=== PATIENT | female | born 1965 | race Caucasian/White ===

== ENCOUNTER → 2020-03-19 | Outpatient (CLI) | payer MEDICARE, MEDICAID ==
[~2020-03-19] MED LIST: ASPI325T8 PO; CRESTOR40 MG PO; DICL100G54 TP; DULO60CA6 PO; IBUP-1007 PO; LEVO112T2 PO; LOSA100T14 PO; LOSA100T2 PO; LURA40TA PO; METO-239 PO; MULT-245 PO; ONDA-84 PO; ONDA4TAB7 PO; OXYC1TAB15 PO; PROM25TA10 PO; ROPI0.25 PO; TIZA4TAB2 PO; TRAZ-123 PO
--- NOTE | 2020-03-19 15:06 | KCIC ---
MRI BRAIN WO Date: 03/19/2020 2:10 PM Indication: Reason: HEADACHES / Spl. Instructions: Pt states the head pain shoots from the back of h er head to her eyes. / History: Deep head pain and pressure since an injury in 2003. Comparison: None. Technique: Multiplanar multisequence MRI of the brain was performed without intravenous contrast usin g the standard protocol. Findings: No acute infarct. No acute or chronic hemorrhage. The ventricles are normal in size and configuration without hydrocephalus. Mild scattered FLAIR hyperintensities in the subcortical and periventricular deep white matter. The scalp and calvarium are normal. The pituitary and sella are normal. No Chiari malformation. The v isualized upper cervical spine is normal. The visualized orbits and globes are normal. The visualized paranasal sinuses are clear. The mastoid air cells are clear. Normal flow voids within the vertebral, basilar, and internal carotid arteries indicating patency. IMPRESSION: 1. No acute infarct, hemorrhage, mass, or hydrocephalus. 2. Mild scattered FLAIR hyperintensities in the subcortical and periventricular deep white matter, a nonspecific finding which can be seen with chronic small vessel ischemic disease, sequela of chronic migraines, demyelinating disease, drug toxicity, prior infection (Lyme disease), prior injury, or vas culitis. Electronically signed by: Armin Perez MD (03/19/2020 3:04 PM) [id number]
== END ==
LOC: KCIC MRI 13:55
PROVIDERS: ATTEND Physician Assistant Medical
DX: R51.9 Headache, unspecified (principal)
CPT/HCPCS: 70551

== ENCOUNTER → 2020-05-14 | Outpatient (CLI) | payer OTHER, MEDICAID ==
--- NOTE | 2020-05-14 17:05 | KCIC ---
EXAMINATION: MRI LEFT LOWER EXTREMITY JOINT WITHOUT INDICATIONS: Left knee pain. Chronic radiating medial knee pain for years. TECHNIQUE: Multiplanar multisequence MRI of the left knee was obtained without contrast. COMPARISON: Bilateral knee radiograph 05/09/2020 FINDINGS: MENISCI: There is a radial tear of the posterior horn-root junction medial meniscus. There is 3 mm e xtrusion of the meniscal body. There is blunting of the interbody of the lateral meniscus. Lateral me niscus is otherwise intact. LIGAMENTS: The anterior and posterior cruciate ligaments are intact. The medial collateral ligament and lateral collateral ligament complex are intact. EXTENSOR MECHANISM: There is ossification in the distal patellar tendon at the tibial tuberosity, li donald sequela of prior [place]-Schlatter's disease. Quadriceps and patellar tendons are otherwise intac t. Fat pads are normal. Retinacula are intact. BONES AND CARTILAGE: There is at least deep partial thickness cartilage loss along the medial patell ar facet and median ridge of the patella. Patchy deep partial-thickness cartilage loss along the cent ral trochlea. There is at least deep partial-thickness cartilage loss throughout the weightbearing me dial compartment with some possible areas of full-thickness cartilage loss. Predominantly superficial partial-thickness cartilage loss in the lateral tibial plateau with a superimposed deep cartilage de fect. Lateral femoral condyle cartilage is intact. No fracture. Marrow signal is normal. OTHER: Small joint effusion. There is a large Zaldivar cyst measuring approximately 6.2 x 2.4 x 1.1 cm. Mild edema along the posterior medial joint capsule. The remaining tendons are intact. Muscles are n ormal. IMPRESSION: 1. Radial tear of the posterior horn-root junction medial meniscus with extrusion. 2. Fraying of the free edge lateral meniscus body. 3. Tricompartment cartilage loss, greatest in medial compartment there is at least deep partial-thick ness cartilage loss. 4. Large Zaldivar cyst. Electronically signed by: Lou Frazier MD (05/14/2020 5:03 PM) [id number]
== END ==
LOC: KCIC MRI 10:40
PROVIDERS: ATTEND Orthopaedic Surgery
DX: S83.204A Other tear of unspecified meniscus, current injury, left knee, initial encounter (principal); M25.462 Effusion, left knee; M71.22 Synovial cyst of popliteal space [Baker], left knee; X58.XXXA Exposure to other specified factors, initial encounter; Y93.89 Activity, other specified; Y92.89 Other specified places as the place of occurrence of the external cause; Y99.8 Other external cause status
CPT/HCPCS: 73721

== ENCOUNTER → 2020-06-11 | Outpatient (CLI) | payer OTHER, MEDICAID ==
[~2020-06-11] MED LIST changes: -ASPI325T8 PO; -ONDA-84 PO; -ONDA4TAB7 PO; -OXYC1TAB15 PO; -PROM25TA10 PO
== END ==
LOC: LAB 12:58
PROVIDERS: ATTEND Orthopaedic Surgery
DX: Z01.812 Encounter for preprocedural laboratory examination (principal); S83.232A Complex tear of medial meniscus, current injury, left knee, initial encounter; X58.XXXA Exposure to other specified factors, initial encounter; Y93.89 Activity, other specified; Y92.89 Other specified places as the place of occurrence of the external cause; Y99.8 Other external cause status; Z20.822 Contact with and (suspected) exposure to COVID-19
CPT/HCPCS: U0003

== ENCOUNTER 2020-06-14 08:16 | Day surgery (SDC) | payer MEDICARE, MEDICAID ==
[~2020-06-14] VITALS: Ht 160 cm; Wt 92.1 kg
[~2020-06-14 08:16] MED LIST changes: +IV RINGERS,LACTATED 1000ML 1,000 ML IV SCH; +PROCHLORPERAZINE 10 MG/2 ML VIAL. IVP PRN; +fentaNYL PF VIAL 100 MCG/2 ML VIAL IVP PRN
[2020-06-14] MEDS ORDERED: SCOPOLAMINE 1.5MG PATCH. TD SCH (09:00)
[2020-06-14] MEDS ORDERED: BUPIVACAINE-EPI 0.25% 30 ML VIAL KIT. ONE ×2 (09:43→10:19)
[2020-06-14] MEDS ORDERED: EPINEPHrine VIAL 30 MG/30 ML VIAL ONE (09:43)
--- NOTE | 2020-06-14 09:43 | PDOC1 ---
History and Physical Date of Admission Date of Admission DATE: 06/14/20 TIME: 09:39 Identification/Chief Complaint Chief Complaint "Sharp" pain in the left knee and denies any significant dull or arthritic pain. Source Source: Chart review, Patient History of Present Illness History of Present Illness 54-year-old woman with bilateral knee pain (L>R) here for left knee arthroscopy and medial meniscectomy. Previous patient whose right knee I previously scoped more than 5 years ago. She has been on disability for chronic back pain since 2012. She locates medial left knee pain that is worse with twisting her knee. Her left knee pain is worse than the right, although her right knee pain varies in severity and timing with swelling depending on activity. Her left knee bothers her everyday and is worse going up and down stairs. So far, she has tried modified activity, topical NSAID's, percocet 10 mg, 325 (2-3 a day) although this "doesn't touch my knees". Past Medical History Past Medical History Obesity. Hypertension. Behavior disorder w/ Depression. Chronic low back pain . Hypothyroidism. Cardiovascular: HTN Musculoskeletal: low back pain Endocrine: Hypothyroidism Past Surgical History Past Surgical History Thyroidectomy 1998 Carpal Tunnel knee surgery 08/11/2013 Gastric bypass 09/06/2013 Umb hernia repair lumbar nerve ablation 2017 Family History Family History: Cancer, Diabetes Current Medications Current Medications Current Medications Cefazolin Sodium/ Dextrose 50 ml @ 100 mls/hr 1X PREOP PRN IV PRIOR TO PROCEDURE; Start 06/14/20 at 06:00; Stop 06/14/20 at 18:00 Fentanyl Citrate (Fentanyl 2ml Vial) 25 mcg PRN Q5MIN PRN IVP MILD PAIN 1-3; Start 06/14/20 at 07:00; Stop 06/15/20 at 06:59 Fentanyl Citrate (Fentanyl 2ml Vial) 50 mcg PRN Q5MIN PRN IVP MODERATE PAIN 4- 6; Start 06/14/20 at 07:00; Stop 06/15/20 at 06:59 Morphine Sulfate (Morphine Sulfate) 1 mg PRN Q10MIN PRN IVP SEVERE PAIN 7-10; Start 06/14/20 at 07:00; Stop 06/15/20 at 06:59 Ringer's Solution 1,000 ml @ 30 mls/hr Q24H IV Last administered on 06/14/20at 09:01; Start 06/14/20 at 07:00; Stop 06/14/20 at 18:59 Hydromorphone HCl (Dilaudid) 0.5 mg PRN Q10MIN PRN IVP SEVERE PAIN 7-10, 2nd CHOICE; Start 06/14/20 at 07:00; Stop 06/15/20 at 06:59 Prochlorperazine Edisylate (Compazine) 5 mg PACU PRN PRN IVP NAUSEA, MRX1; Start 06/14/20 at 07:00; Stop 06/15/20 at 06:59 Scopolamine (Transderm-Scop) 1 patch Q3DAYS TD Last administered on 06/14/20at 09:01; Start 06/14/20 at 09:00 Active Scripts Active Reported Latuda (Lurasidone Hcl) 40 Mg Tablet 40 Mg PO DAILY Cozaar (Losartan Potassium) 100 Mg Tablet 100 Mg PO DAILY Metoprolol Succinate ( Xl ) (Metoprolol Succinate) 25 Mg Tab.er.24h 50 Mg PO DAILY Voltaren (Diclofenac Sodium) 100 Gm Gel..gram. 100 Gm TP PRN QID PRN Trazodone Hcl 100 Mg Tablet 100 Mg PO HS Requip (Ropinirole Hcl) 0.25 Mg Tablet 1 Mg PO HS Cymbalta (Duloxetine Hcl) 60 Mg Capsule.dr 120 Mg PO DAILY Latuda (Lurasidone Hcl) 40 Mg Tablet 40 Mg PO QHS Crestor (Rosuvastatin Calcium) 40 Mg Tablet 20 Mg PO HS Synthroid (Levothyroxine Sodium) 112 Mcg Tablet 112 Mcg PO DAILYAC Tizanidine Hcl 4 Mg Tablet 8 Mg PO TID PRN Ibuprofen 600 Mg Tablet 600 Mg PO PRN Q6HRS PRN Multi Vitamin Daily (Multivitamin) 1 Each Tablet 1 Each PO DAILY Allergies Allergies: Coded Allergies: acetaminophen (Verified Allergy, Intermediate, Itching, 06/13/20) can take if premedicates with benadryl adhesive tape (Verified Allergy, Intermediate, Itching, 06/13/20) rash, itching, skin tears off guaifenesin (Verified Allergy, Intermediate, Unknown, 06/13/20) hydrocodone (Verified Allergy, Intermediate, Itching, 06/13/20) can take if medicates with benadryl prior to taking oxymorphone (Verified Allergy, Intermediate, Itching, 06/13/20) propoxyphene (Verified Allergy, Intermediate, Itching, 06/13/20) can take if premedicates with benadryl vancomycin (Verified Allergy, Intermediate, Itching, 06/13/20) can take if premedicates with benadryl ROS Review of System OPHTHALMOLOGY: Blurred vision none. Double vision denies. Change in vision none. ENT: Hearing loss none. Change in voice denies. Rhinorrhea none. CARDIOLOGY: Palpitations none. Shortness of breath denies. Chest pain denies. CONSTITUTIONAL: Fever denies. Chills denies. Weight gain denies. Weakness none. weight loss denies. Fatigue none. GASTROENTEROLOGY: Diarrhea denies. Vomiting none. Dysphagia none. UROLOGY: Voiding normally yes. Hematuria none. MUSCULOSKELETAL: Chronic back or neck pain denies. Swelling of the feet, hands, ankles and /or legs denies. Joint pain admits. Tingling/numbness no. DERMATOLOGY: Rash denies. Lumps none. NEUROLOGY: Dizziness/lightheadedness denies. Double vision, temporary blindness denies. Tingling/numbness none. PSYCHOLOGY: Change in mood or personality denies. Memory loss none. ENDOCRINOLOGY: Obesity denies. Fatigue none. Weight loss none. HEMATOLOGY/LYMPH: Hepatitis denies. Enlarged lymph nodes denies. Physical Exam General: Alert, Cooperative HEENT: Atraumatic Lungs: Normal air movement Heart: RRR Abdomen: Soft Extremities: Other (The LEFT knee shows normal alignment, no masses and no effusion. There is tenderness at the medial joint line and a positive medial Anju's test. The lateral joint line shows no tenderness. Range of motion is 0-135 degrees. There is extensive patellofemoral crepitus. Anju's test is positive. There is medial joint line pain with deep flexion and especially with rotation of the tibia. The knee is stable to varus and valgus stress without subluxation or laxity. The ACL feels intact on Leonardo testing. Muscle strength is normal (5/5) for quadriceps and hamstrings, and muscle tone is normal. The skin is normal with no scars, rashes, lesions or ulcers. Light touch sensation is intact. No edema and no varicosities. Dorsalis pedis pulse is intact and capillary refill is normal.) Vitals Vitals Vital Signs Date Time Temp Pulse Resp B/P (MAP) Pulse Ox O2 Delivery O2 Flow Rate FiO2 06/14/20 08:52 97.1 63 20 153/74 99 Room Air 97.1 Images Images X-rays of the left knee show minimal degenerative change, doubtful osteophytic lipping. The right knee which is currently asymptomatic shows osteophytes and joint space narrowing. [facility] [address] [place] [address] IMAGING REPORT Signed PATIENT: AIRAM BUTLER ACCOUNT: [id number] : 1965 LOCATION: [facility] AGE: 54 SEX: F EXAM STATUS: PRE CLI ORD. PHYSICIAN: IZZY CHILDS MD REASON: BILAT KNEE PAIN PROCEDURE: KNEE STANDING BILAT AP EXAM: XR KNEE 1-2 VIEWS, XR KNEE_AP BILAT STANDING. HISTORY: Bilateral knee pain. COMPARISON: None. FINDINGS: On the right, there are moderate osteophytes along the medial and lateral compartments. Joint spaces are relatively preserved. Alignment is maintained. No fractures are identified. There is no joint effusion. On the left, there are small osteophytes along the medial compartment. Joint spaces and alignment are preserved. There is no joint effusion. There is ossification within the distal patellar tendon. IMPRESSION: 1. Mild to moderate right and mild left osteoarthritis as detailed above. Electronically signed by: Clarissa Rodriguez MD (05/09/2020 2:13 PM) [id number] DICTATED and SIGNED BY: RAMÍREZ RODRIGUEZ MD DATE: 05/09/20 1406 Reports reviewed, Images independently reviewed of the left knee MRI from [facility] on 05/14/20 EXAMINATION: MRI LEFT LOWER EXTREMITY JOINT WITHOUT INDICATIONS: Left knee pain. Chronic radiating medial knee pain for years. TECHNIQUE: Multiplanar multisequence MRI of the left knee was obtained without contrast. COMPARISON: Bilateral knee radiograph 05/09/2020 FINDINGS: MENISCI: There is a radial tear of the posterior horn-root junction medial meniscus. There is 3 mm extrusion of the meniscal body. There is blunting of the interbody of the lateral meniscus. Lateral meniscus is otherwise intact. LIGAMENTS: The anterior and posterior cruciate ligaments are intact. The medial collateral ligament and lateral collateral ligament complex are intact. EXTENSOR MECHANISM: There is ossification in the distal patellar tendon at the tibial tuberosity, likely sequela of prior [place]rizio-Schlatter's disease. Quadriceps and patellar tendons are otherwise intact. Fat pads are normal. Retinacula are intact. BONES AND CARTILAGE: There is at least deep partial thickness cartilage loss along the medial patellar facet and median ridge of the patella. Patchy deep partial-thickness cartilage loss along the central trochlea. There is at least deep partial-thickness cartilage loss throughout the weightbearing medial compartment with some possible areas of full-thickness cartilage loss. Predominantly superficial partial-thickness cartilage loss in the lateral tibial plateau with a superimposed deep cartilage defect. Lateral femoral condyle cartilage is intact. No fracture. Marrow signal is normal. OTHER: Small joint effusion. There is a large Zaldivar cyst measuring approximately 6.2 x 2.4 x 1.1 cm. Mild edema along the posterior medial joint capsule. The remaining tendons are intact. Muscles are normal. IMPRESSION: 1. Radial tear of the posterior horn-root junction medial meniscus with extrusion. 2. Fraying of the free edge lateral meniscus body. 3. Tricompartment cartilage loss, greatest in medial compartment there is at least deep partial-thickness cartilage loss. 4. Large Zaldivar cyst. Electronically signed by: Lou Frazier MD (05/14/2020 5:03 PM) [id number] DICTATED and SIGNED BY: LOU FRAZIER MD DATE: 05/14/20 [id number] 0. VTE Prophylaxis Ordered VTE Prophylaxis Devices: Yes VTE Pharmacological Prophylaxi: Yes Assessment/Plan Assessment/Plan Her MRI shows a medial meniscus tear with some chondral loss. We reviewed her MRI together and discussed the natural history of the condition as well as risks, benefits, and alternatives to treatment. Specifically, I explained that she's essentially left with a few options: nonoperative symptom management, arthroscopy, or knee replacement. She has a radial root tear which in my experience is the most painful meniscus tear configuration, and often gets dramatic benefit from arthroscopic surgery. In fact the left knee which has minimal degenerative change radiographically is the painful knee but the right knee has more osteophytes and more narrowing. I discussed total knee arthroplasty, and ultimately that might be warranted in 5 or 10 years. If this were my knee, I would rather have arthroscopy. Her sharp pains and instability (and lack of stiffness symtoms) seem to be meniscal tear rather than arthritic symptoms. Furthermore, she's young for knee replacement and would likely require a revision at her age. After a thorough discussion, she has elected to proceed with arthroscopy. We discussed potential risks of arthroscopic surgery, including risks of bleeding, infection, progressive arthritis, blood clots, or other potential surgical or anesthetic complications. All of her questions were answered and she desires to proceed with surgery. We discussed potential risks of arthroscopic surgery, including risks of bleeding, infection, progressive arthritis, blood clots, or other potential surgical or anesthetic complications. We also discussed postoperative treatment and expectations including progression of arthritis following knee arthroscopy. Furthermore, I highlighted the possibility of eventual knee replacement and explained that some of her symptoms may persist after arthroscopy. All of her questions were answered and she desires to proceed with surgery. She is here today for elective left knee arthroscopy with medial meniscectomy. Justifications for Admission Other Justification IZZY CHILDS MD Jun 14, 2020 09:43
[2020-06-14] MEDS ORDERED: DEXAMETHASONE SOD PHOS 4 MG/ML VIAL ONE (09:50)
[2020-06-14] MEDS ORDERED: KETOROLAC 30 MG/ML VIAL. ONE (09:50)
[2020-06-14] MEDS ORDERED: ONDANSETRON PF 4 MG/2 ML VIAL. ONE (09:50)
[2020-06-14] MEDS ORDERED: LIDOCAINE 2% PF 5 ML VIAL. ONE (09:52)
[2020-06-14] MEDS ORDERED: PROPOFOL 10 MG/ML (20ML) VIAL. IV ONE (09:52)
[2020-06-14] MEDS ORDERED: SEVOFLURANE 61 TO 120 MINUTES. IH ONE (09:52)
[2020-06-14] MEDS ORDERED: fentaNYL PF VIAL 100 MCG/2 ML VIAL ONE ×2 (10:07→11:02)
[2020-06-14] MEDS ORDERED: SEVOFLURANE 31 TO 60 MINUTES. IH ONE (10:29)
[2020-06-14] MEDS: fentaNYL PF VIAL 100 MCG/2 ML VIAL IVP PRN ×2 (11:04→11:09)
--- NOTE | 2020-06-14 11:05 | PDOC4 ---
Operative Note Operative Note Date of Procedure: June 14, 2020 Preoperative Diagnosis: left knee medial meniscus tear Postoperative Diagnosis: * complex tear of medial meniscus, current injury, left knee, initial encounter S83.232A * complex tear of lateral meniscus, current injury, left knee, initial encounter S83.272A Procedures Performed: * left knee arthroscopy, surgical, with meniscectomy, medial AND lateral, including meniscal shaving, including debridement/shaving of articular cartilage (chondroplasty) CPT 62163 Surgeon: Izzy Lozada MD Inspector Eyeglass Frames: MIKE Amado Anesthesia: General Estimated Blood Loss: 5 mL Specimens: none Drains: none Complications: none Tourniquet time: 25 minutes at 300 mm Hg Indications for Procedure: The patient is a 54-year-old with left knee pain, unrelieved with nonoperative treatment. Exam and MRI are consistent with a meniscus tear. We talked about the risks and benefits of proceeding with an arthroscopic procedure. We talked about potential risks of ongoing pain, progressive arthritis, bleeding, infection, blood clots, or other potential surgical or anesthetic complications. All of the patient's questions about surgery were answered and they desired to proceed. Written consent was obtained. Description of Operation: The patient was identified in the preoperative holding area. The correct left knee was marked by me. The patient was taken to the operating room, where a general anesthetic was used. Preoperative antibiotics were given intravenously. A time-out procedure was performed. A tourniquet was placed on the upper thigh. Local anesthetic 20 mL of 0.25% bupivacaine was injected using sterile technique into the knee joint. The limb was prepared circumferentially with ChloraPrep solution and sterile waterproof arthroscopy drapes were applied. The limb was exsanguinated with an Esmarch bandage and the tourniquet was inflated. Lateral and medial arthroscopy portals were established. The medial meniscus showed a complex unrepairable tear with unstable flaps. A meniscectomy was performed with basket forceps and the motorized shaver back to a smooth stable base, and the resection tapered into the middle one-third of the meniscus. This was primarily a radial root tear to the rim of the meniscus, so the entire posterior one third of the meniscus was resected and tapered into the middle one third. The medial tibiofemoral joint showed chondromalacia Outerbridge grade III, and a shaving chondroplasty was performed removing unstable fragments of cartilage with the shaver.The intercondylar notch was free of loose bodies, and the ACL was intact. The lateral tibiofemoral joint showed a complex unrepairable meniscus tear, and a meniscectomy was performed with basket forceps and the motorized shaver back to a smooth stable base. This was primarily an internal surface tear in the middle one third of the meniscus towards the posterior one third of the meniscus, and only about 20% of the meniscus was resected, tapering to a smooth edge with the basket forceps and the motorized shaver. The lateral articular surfaces showed chondromalacia Outerbridge grade I, so no chondroplasty was required. The patellofemoral joint showed chondromalacia Outerbridge grade III, and a shaving chondroplasty was performed removing unstable fragments of cartilage with the shaver. The suprapatellar pouch, medial and lateral gutters were free of loose bodies. Copious irrigation was used to drain all meniscal and chondral fragments, and the knee was drained of fluid. The portals were closed with #3-0 Prolene interrupted sutures. Additional local anesthetic, 30 mL of 0.25% bupivacaine with epinephrine was injected. A bulky sterile dressing was applied and the tourniquet was released. Needle and sponge counts were correct and there were no apparent complications. IZZY LOZADA MD Jun 14, 2020 11:05
[2020-06-14] MEDS ORDERED: MORPHINE SULFATE 2 MG/ML VIAL. ONE (11:13)
[2020-06-14] MEDS: MORPHINE SULFATE 2 MG/ML VIAL. IVP PRN ×2 (11:14→11:24)
[2020-06-14] MEDS ORDERED: OXYC1TAB15 PO ×2 (11:22→11:30)
[2020-06-14] MEDS ORDERED: PROM25TA10 PO ×2 (11:23→11:31)
[2020-06-14] MEDS ORDERED: ONDA-84 PO (11:25)
[2020-06-14] MEDS ORDERED: HYDROmorphone 2 MG/ML VIAL ONE (11:27)
[2020-06-14] MEDS: HYDROmorphone 2 MG/ML VIAL IVP PRN ×4 (11:30→12:01)
[2020-06-14] MEDS ORDERED: ONDA4TAB7 PO (11:31)
[2020-06-14 12:10] VITALS: BP 128/63
[2020-06-14] MEDS ORDERED: oxyCODONE/APAP 5/325 1 TAB TABLET PO ONE (12:15)
[2020-06-14] MEDS ORDERED: ASPI325T8 PO (12:52)
== END 2020-06-14 13:05 | disposition home or self-care (01) ==
LOC: SURG 08:16
PROVIDERS: ATTEND Orthopaedic Surgery
DX: S83.232A Complex tear of medial meniscus, current injury, left knee, initial encounter (principal); S83.272A Complex tear of lateral meniscus, current injury, left knee, initial encounter; M94.262 Chondromalacia, left knee; I10 Essential (primary) hypertension; E78.00 Pure hypercholesterolemia, unspecified; E03.9 Hypothyroidism, unspecified; F41.9 Anxiety disorder, unspecified; F32.9 Major depressive disorder, single episode, unspecified; Z79.82 Long term (current) use of aspirin; Z79.899 Other long term (current) drug therapy; Z87.891 Personal history of nicotine dependence; Z72.89 Other problems related to lifestyle; Z98.890 Other specified postprocedural states; Z88.1 Allergy status to other antibiotic agents; Z88.8 Allergy status to other drugs, medicaments and biological substances; X58.XXXA Exposure to other specified factors, initial encounter; Y93.89 Activity, other specified; Y92.89 Other specified places as the place of occurrence of the external cause; Y99.8 Other external cause status
CPT/HCPCS: 29880; A4930; J0171; J0690; J1100; J1170; J1885; J2270; J2405; J2704; J3010

== ENCOUNTER → 2020-11-20 | Outpatient (CLI) | payer MEDICARE, MEDICAID ==
[~2020-11-20] MED LIST changes: +ASPI325T8 PO; -IV RINGERS,LACTATED 1000ML 1,000 ML IV SCH; +ONDA-84 PO; +ONDA4TAB7 PO; +OXYC1TAB15 PO; -PROCHLORPERAZINE 10 MG/2 ML VIAL. IVP PRN; +PROM25TA10 PO; -fentaNYL PF VIAL 100 MCG/2 ML VIAL IVP PRN
[2020-11-20 14:16] LABS: BASO % 1 % (0-3); EOS # 0.1 x10^3/uL (0.0-0.7); EOS % 2 % (0-3); HEMATOCRIT 34.5 % (36.0-47.0); HEMOGLOBIN 11.7 g/dL (12.0-15.5); LYMPH # 2.4 x10^3/uL (1.0-4.8); LYMPH % 39 % (24-48); MEAN CORPUSCULAR HEMOGLOBIN 29 pg (25-35); MEAN CORPUSCULAR HGB CONC 34 g/dL (31-37); MEAN CORPUSCULAR VOLUME 87 fL (79-100); MONO # 0.5 x10^3/uL (0.0-1.1); MONO % 9 % (0-9); NEUT # 3.1 x10^3/uL (1.8-7.7); NEUT % 50 % (31-73); PLATELET COUNT 264 x10^3/uL (140-400); RED BLOOD COUNT 3.99 x10^6/uL (3.50-5.40); RED CELL DISTRIBUTION WIDTH 14.4 % (11.5-14.5); WHITE BLOOD COUNT 6.2 x10^3/uL (4.0-11.0)
== END ==
LOC: ONCLAB 13:35
PROVIDERS: ATTEND Internal Medicine Hematology & Oncology
DX: D50.0 Iron deficiency anemia secondary to blood loss (chronic) (principal)
CPT/HCPCS: 36415; 82607; 82728; 82746; 83540; 83550; 85025

== ENCOUNTER → 2020-12-18 | Outpatient (CLI) | payer MEDICARE, MEDICAID ==
[~2020-12-18] MED LIST changes: -DULO60CA6 PO; +DULO60CA7 PO
[2020-12-18 14:58] LABS: BASO % 0 % (0-3); EOS # 0.1 x10^3/uL (0.0-0.7); EOS % 2 % (0-3); HEMATOCRIT 36.7 % (36.0-47.0); HEMOGLOBIN 12.3 g/dL (12.0-15.5); LYMPH % 41 % (24-48); MEAN CORPUSCULAR HEMOGLOBIN 30 pg (25-35); MEAN CORPUSCULAR HGB CONC 34 g/dL (31-37); MEAN CORPUSCULAR VOLUME 89 fL (79-100); MONO # 0.5 x10^3/uL (0.0-1.1); MONO % 10 % (0-9); NEUT # 2.3 x10^3/uL (1.8-7.7); NEUT % 47 % (31-73); PLATELET COUNT 205 x10^3/uL (140-400); RED BLOOD COUNT 4.15 x10^6/uL (3.50-5.40); RED CELL DISTRIBUTION WIDTH 14.1 % (11.5-14.5); WHITE BLOOD COUNT 4.9 x10^3/uL (4.0-11.0)
== END ==
LOC: ONCLAB 12:15
PROVIDERS: ATTEND Internal Medicine Hematology & Oncology
DX: D50.0 Iron deficiency anemia secondary to blood loss (chronic) (principal)
CPT/HCPCS: 36415; 82728; 83540; 83550; 85025

== ENCOUNTER → 2021-03-19 | Outpatient (CLI) | payer MEDICARE, MEDICAID ==
[~2021-03-19] MED LIST changes: +TIZA-75 PO; -TIZA4TAB2 PO
== END ==
LOC: ONCLAB 10:49
PROVIDERS: ATTEND Physician Assistant
DX: D50.0 Iron deficiency anemia secondary to blood loss (chronic) (principal)
CPT/HCPCS: 36415; 82728; 83540; 83550

== ENCOUNTER → 2021-04-30 | Outpatient (CLI) | payer MEDICARE, MEDICAID ==
[~2021-04-30] MED LIST changes: -LURA40TA PO; +LURA40TA2 PO
[2021-04-30 14:32] LABS: BASO % 1 % (0-3); EOS # 0.1 x10^3/uL (0.0-0.7); EOS % 2 % (0-3); HEMATOCRIT 34.8 % (36.0-47.0); HEMOGLOBIN 11.5 g/dL (12.0-15.5); LYMPH # 2.1 x10^3/uL (1.0-4.8); LYMPH % 31 % (24-48); MEAN CORPUSCULAR HEMOGLOBIN 31 pg (25-35); MEAN CORPUSCULAR HGB CONC 33 g/dL (31-37); MEAN CORPUSCULAR VOLUME 93 fL (79-100); MONO # 0.6 x10^3/uL (0.0-1.1); MONO % 9 % (0-9); NEUT # 3.8 x10^3/uL (1.8-7.7); NEUT % 58 % (31-73); PLATELET COUNT 257 x10^3/uL (140-400); RED BLOOD COUNT 3.74 x10^6/uL (3.50-5.40); RED CELL DISTRIBUTION WIDTH 12.9 % (11.5-14.5); WHITE BLOOD COUNT 6.6 x10^3/uL (4.0-11.0)
== END ==
LOC: ONCLAB 14:06
PROVIDERS: ATTEND Internal Medicine Hematology & Oncology
DX: D50.0 Iron deficiency anemia secondary to blood loss (chronic) (principal)
CPT/HCPCS: 36415; 85025

== ENCOUNTER → 2021-08-07 | Outpatient (CLI) | payer MEDICARE, MEDICAID ==
--- NOTE | 2021-08-07 15:48 | KCIC ---
MR LUMBAR SPINE WO [id number] Date: 08/07/2021 2:50 PM Indication: LUMBAGO. Chronic LBP into BLE for yrs, getting worse. Comparison: None. Technique: Multi-planar multi-weighted magnetic resonance imaging of the lumbar spine was performed w ithout intravenous contrast using the standard lumbar spine protocol. FINDINGS: Mild S-shaped lumbar curvature. No acute fracture. Moderate multilevel degenerative disc desiccation and disc height loss. Degenerative endplate edema at L1-2 and L3-4. The conus terminates at a normal level. No abnormal signal is seen within the visualized distal spina l cord. No clumping of intrathecal nerve roots. No soft tissue abnormality in the visualized abdomen or pelvis. T12-L1: No disc bulge. No facet arthropathy. No significant spinal stenosis or neural foraminal narro wing. L1-L2: Disc bulge. Mild facet arthropathy. No significant spinal stenosis. Mild left neural foraminal narrowing. L2-L3: Disc bulge. Mild facet arthropathy. No significant spinal stenosis. Mild left neural foraminal narrowing. L3-L4: Disc bulge. Moderate facet arthropathy. Mild spinal stenosis and lateral recess narrowing. Mil d to moderate bilateral neural foraminal narrowing. L4-L5: Disc bulge. Severe facet arthropathy. No significant spinal stenosis. Mild to moderate bilater al neural foraminal narrowing. L5-S1: Disc bulge. Moderate facet arthropathy. No significant spinal stenosis. Mild left neural burke inal narrowing. IMPRESSION: Moderate lumbar spondylosis, detailed level by little above. Electronically signed by: Armin Perez MD (08/07/2021 3:46 PM) [id number]
== END ==
LOC: KCIC MRI 14:34
PROVIDERS: ATTEND Physician Assistant Medical
DX: M47.816 Spondylosis without myelopathy or radiculopathy, lumbar region (principal); M51.27 Other intervertebral disc displacement, lumbosacral region; M48.07 Spinal stenosis, lumbosacral region; M48.8X7 Other specified spondylopathies, lumbosacral region; R60.0 Localized edema; M43.8X6 Other specified deforming dorsopathies, lumbar region
CPT/HCPCS: 72148